=== PATIENT | male | born 1945 | race African-American/Black ===

== ENCOUNTER 2021-02-19 20:19 | Observation (INO) ==
[2021-02-19 21:48] LABS: Bilirubin,Urine Negative (Negative); Blood,Urine Negative (Negative); Clarity,Urine Clear (Clear); Color,Urine Colorless (Yellow); Glucose,Urine (UA) >=1000 mg/dL (Normal); Ketones,Urine Negative (Negative); Leukocyte Esterase,Urine Negative (Negative); Nitrite,Urine Negative (Negative); Protein,Urine Negative (Neg-Trace); RBC,Urine 0-3 per hpf (0-3); Specific Gravity,Urine 1.025 (1.010-1.025); Squamous Epithelial Cell,Urine Few per hpf (None-Few); Urobilinogen,Urine Normal (Normal); WBC,Urine 0-3 per hpf (0-3)
[2021-02-19 22:00] LABS: VBG HCO3 28 mEq/L (21-27); VBG PCO2 40 mmHg (41-51); VBG PH 7.45 pH Units (7.32-7.42); VBG PO2 154 mmHg (25-50)
[2021-02-19 22:02] LABS: Basophils % 0.3 %; Eosinophils # 0.3 K/mcL (0.0-0.6); Eosinophils % 2.6 %; Hematocrit 41.1 % (37.5-50.1); Hemoglobin 13.7 g/dL (12.9-16.9); Immature Granulocytes % 0.8 % (0-4); Lymphocytes # 2.7 K/mcL (0.6-4.6); Lymphocytes % 22.8 %; Mean Corpuscular HGB Conc 33.3 g/dL (31.6-35.5); Mean Corpuscular Hemoglobin 26.8 pg (28.0-33.3); Mean Corpuscular Volume 80.4 fL (83.0-100.0); Monocytes % 8.8 %; Neutrophils # 7.5 K/mcL (1.6-8.9); Platelet Count 250 K/mcL (140-400); Red Blood Count 5.11 M/mcL (4.19-5.50); Red Cell Distribution Width 16.3 % (11.5-14.5); Segmented Neutrophils % 64.7 %; White Blood Count 11.7 K/mcL (4.3-11.1)
[2021-02-19 22:15] LABS: Alanine Aminotransferase 18 Units/L (7-52); Albumin/Globulin Ratio 0.9 (1.1-2.2); Alkaline Phosphatase 144 Units/L (34-104); Aspartate Amino Transferase 17 Units/L (13-39); BUN/Creatinine Ratio 17 (6-26); Bilirubin,Direct 0.1 mg/dL (0.0-0.2); Bilirubin,Indirect 0.6 mg/dL (0.0-1.0); Bilirubin,Total 0.7 mg/dL (0.3-1.0); Blood Urea Nitrogen 26 mg/dL (8-23); Carbon Dioxide 26 mEq/L (23-29); Chloride 87 mEq/L (98-107); Globulin 4.3 g/dL (2.4-3.5); Glucose 671 mg/dL (70-105); Osmolality,Calculated 297 (280-300); Phosphorous 4.5 mg/dL (2.7-4.5); Sodium 125 mEq/L (136-145); Total Protein 8.3 g/dL (6.4-8.9); eGFR For African Americans 53 (> 60); eGFR For Non-African Americans 44 (> 60)
[2021-02-19 22:46] LABS: INR 1.2; Prothrombin Time 13.5 Seconds (9.4-12.1)
[2021-02-19] MEDS ORDERED: 0.9 % Sodium Chloride 1,000 ML IVC ONE (23:01)
[2021-02-19 23:48] LABS: Troponin I < 0.03 ng/mL (< 0.04)
[2021-02-20 00:23] LABS: Adenovirus Not Detected (Not Detect); Bordetella Pertussis Not Detected (Not Detect); Chlamydophila pneumoniae Not Detected (Not Detect); Coronavirus 229E Not Detected (Not Detect); Coronavirus HKU1 Not Detected (Not Detect); Coronavirus NL63 Not Detected (Not Detect); Coronavirus OC43 Not Detected (Not Detect); Human Metapneumovirus Not Detected (Not Detect); Human Rhinovirus/Enterovirus Not Detected (Not Detect); Influenza A Subtype 2009 H1 Not Detected (Not Detect); Influenza B Not Detected (Not Detect); Mycoplasma pneumoniae Not Detected (Not Detect); Parainfluenza Virus 1 Not Detected (Not Detect); Parainfluenza Virus 2 Not Detected (Not Detect); Parainfluenza Virus 3 Not Detected (Not Detect); Parainfluenza Virus 4 Not Detected (Not Detect); Respiratory Syncytial Virus Not Detected (Not Detect); SARS-CoV-2 Not Detected (Not Detect)
[2021-02-20] MEDS ORDERED: Insulin Human Regular 10 UNIT in 0.9 % Sodium Chloride 10 ML IV ONE ×2 (00:34→05:45)
[2021-02-20] MEDS: 0.9 % Sodium Chloride 1,000 ML IVC SCH ×3 (00:37→18:08)
[2021-02-20] MEDS ORDERED: Naloxone 0.4 MG/ML INJ IVP PRN (02:16)
[2021-02-20] MEDS ORDERED: Ondansetron 4 MG/2 ML VIAL IVP PRN (02:16)
[2021-02-20 02:49] LABS: BUN/Creatinine Ratio 18 (6-26); Blood Urea Nitrogen 24 mg/dL (8-23); Calcium 9.6 mg/dL (8.6-10.3); Carbon Dioxide 29 mEq/L (23-29); Chloride 94 mEq/L (98-107); Glucose 419 mg/dL (70-105); Osmolality,Calculated 296 (280-300); Potassium 3.3 mEq/L (3.5-5.1); Sodium 132 mEq/L (136-145); eGFR For African Americans > 60 (> 60); eGFR For Non-African Americans 52 (> 60)
[2021-02-20] MEDS ORDERED: D5% in Water 1,000 ML IVC PRN (04:33)
[2021-02-20] MEDS ORDERED: Dextrose Gel 15 GM/37.5 ML TUBE PO PRN ×2 (04:33)
[2021-02-20] MEDS ORDERED: *HR* Dextrose 50 % in Water (Vial) 50 ML VIAL IVP PRN (04:33)
[2021-02-20] MEDS: *HR* Heparin 5,000 UNIT/ML VIAL SQ SCH ×3 (05:25→20:18)
[2021-02-20] MEDS ORDERED: Potassium Chloride 40 MEQ, Lidocaine 1% 2 ML in 0.9 % Sodium Chloride 500 ML IVPB ONE (06:00)
[2021-02-20] MEDS ORDERED: Insulin LISPRO 300 UNITS/3 ML VIAL SUBQ SCH (06:00)
[2021-02-20 10:03] LABS: BUN/Creatinine Ratio 16 (6-26); Blood Urea Nitrogen 20 mg/dL (8-23); Calcium 8.9 mg/dL (8.6-10.3); Carbon Dioxide 30 mEq/L (23-29); Chloride 100 mEq/L (98-107); Glucose 288 mg/dL (70-105); Osmolality,Calculated 293 (280-300); Potassium 3.9 mEq/L (3.5-5.1); Sodium 135 mEq/L (136-145); eGFR For African Americans > 60 (> 60); eGFR For Non-African Americans 57 (> 60)
[2021-02-20] MEDS ORDERED: Insulin DETEMIR 100 UNIT/ML X5UNITS SUBQ ONE (11:00)
[2021-02-20] MEDS: Insulin LISPRO 300 UNITS/3 ML VIAL SUBQ SCH ×2 (12:03→18:09)
[2021-02-20] MEDS ORDERED: Insulin DETEMIR 100 UNIT/ML X5UNITS SUBQ SCH (21:00)
[2021-02-20 21:21] LABS: Estimated Average Glucose 272 mg/dl; Hemoglobin A1C 11.1 %
[2021-02-21 02:09] LABS: Immature Granulocytes % 0.3 % (0-4)
[2021-02-21 02:19] LABS: Basophils % 0.3 %; Eosinophils # 0.2 K/mcL (0.0-0.6); Eosinophils % 2.8 %; Hematocrit 41.9 % (37.5-50.1); Hemoglobin 14.2 g/dL (12.9-16.9); Immature Platelets 6.1 % (1.1-6.1); Lymphocytes # 2.9 K/mcL (0.6-4.6); Mean Corpuscular HGB Conc 33.9 g/dL (31.6-35.5); Mean Corpuscular Hemoglobin 27.3 pg (28.0-33.3); Mean Corpuscular Volume 80.6 fL (83.0-100.0); Monocytes # 0.7 K/mcL (0.0-1.3); Monocytes % 8.3 %; Neutrophils # 4.8 K/mcL (1.6-8.9); Platelet Count 210 K/mcL (140-400); Red Cell Distribution Width 16.4 % (11.5-14.5); Segmented Neutrophils % 55.3 %; White Blood Count 8.7 K/mcL (4.3-11.1)
[2021-02-21 02:35] LABS: Platelet Estimate Normal (Normal)
[2021-02-21] MEDS: Insulin LISPRO 300 UNITS/3 ML VIAL SUBQ SCH ×2 (03:33→06:07)
[2021-02-21] MEDS: 0.9 % Sodium Chloride 1,000 ML IVC SCH ×2 (03:34→07:45)
[2021-02-21] MEDS: *HR* Heparin 5,000 UNIT/ML VIAL SQ SCH ×2 (05:22→14:31)
[2021-02-21 08:14] VITALS: BP 164/97; PULSE 76; TEMP 97.5; O2SAT 94
[2021-02-21 10:35] LABS: BUN/Creatinine Ratio 13 (6-26); Blood Urea Nitrogen 13 mg/dL (8-23); Calcium 8.5 mg/dL (8.6-10.3); Carbon Dioxide 16 mEq/L (23-29); Chloride 100 mEq/L (98-107); Glucose 250 mg/dL (70-105); Osmolality,Calculated 283 (280-300); Sodium 132 mEq/L (136-145); eGFR For African Americans > 60 (> 60); eGFR For Non-African Americans > 60 (> 60)
[2021-02-21] MEDS ORDERED: Insulin LISPRO 300 UNITS/3 ML VIAL SUBQ SCH ×2 (11:30→21:00)
== END 2021-02-21 15:33 | disposition home or self-care (01) ==
LOC: EMEROOARM 20:19 → 2ANU 20:19 → SUATTDRO 02-20 00:56 → 2ANU 02-20 01:46
PROVIDERS: ADMIT Family Medicine; ATTEND Family Medicine

== ENCOUNTER 2022-04-30 13:18 | Inpatient (IN) ==
[2022-04-30 14:15] LABS: VBG HCO3 23 mEq/L (21-27); VBG PCO2 34 mmHg (41-51); VBG PH 7.44 pH Units (7.32-7.42); VBG PO2 118 mmHg (25-50)
[2022-04-30 14:16] LABS: INR 1.2; Prothrombin Time 13.7 Seconds (9.4-12.1)
[2022-04-30 14:18] LABS: Activated Partial Thrombo Time 26.3 Seconds (26.0-36.0); Basophils % 0.2 %; Eosinophils # 0.1 K/mcL (0.0-0.6); Immature Granulocytes % 0.6 % (0-4); Lymphocytes # 1.3 K/mcL (0.6-4.6); Lymphocytes % 14.5 %; Mean Corpuscular HGB Conc 28.7 g/dL (31.6-35.5); Mean Corpuscular Hemoglobin 19.1 pg (28.0-33.3); Mean Corpuscular Volume 66.5 fL (83.0-100.0); Mean Platelet Volume 9.5 fL (9.4-12.4); Monocytes % 10.9 %; Neutrophils # 6.3 K/mcL (1.6-8.9); Nucleated Red Blood Cells 0.9 /100 WBC (0); Platelet Count 358 K/mcL (140-400); Red Blood Count 2.15 M/mcL (4.19-5.50); Red Cell Distribution Width 19.5 % (11.5-14.5); Segmented Neutrophils % 72.8 %; White Blood Count 8.7 K/mcL (4.3-11.1)
[2022-04-30 14:25] LABS: Alanine Aminotransferase 9 Units/L (7-52); Albumin 3.8 g/dL (3.5-5.7); Albumin/Globulin Ratio 1.1 (1.1-2.2); Alkaline Phosphatase 80 Units/L (34-104); Aspartate Amino Transferase 13 Units/L (13-39); BUN/Creatinine Ratio 17 (6-26); Bilirubin,Direct 0.1 mg/dL (0.0-0.2); Bilirubin,Indirect 0.3 mg/dL (0.0-1.0); Bilirubin,Total 0.4 mg/dL (0.3-1.0); Blood Urea Nitrogen 23 mg/dL (8-23); Carbon Dioxide 23 mEq/L (23-29); Chloride 104 mEq/L (98-107); Globulin 3.4 g/dL (2.4-3.5); Glucose 107 mg/dL (70-105); Lipase 9 Units/L (11-82); Magnesium 2.1 mg/dL (1.6-2.6); Osmolality,Calculated 284 (280-300); Phosphorous 4.7 mg/dL (2.7-4.5); Potassium 4.8 mEq/L (3.5-5.1); Sodium 135 mEq/L (136-145); Total Protein 7.2 g/dL (6.4-8.9)
[2022-04-30 14:36] LABS: Hematocrit 14.3 % (37.5-50.1); Hemoglobin 4.1 g/dL (12.9-16.9)
[2022-04-30 14:37] LABS: Bilirubin,Urine Negative (Negative); Blood,Urine Large (Negative); Clarity,Urine Turbid (Clear); Glucose,Urine (UA) Normal (Normal); Ketones,Urine Negative (Negative); Leukocyte Esterase,Urine Negative (Negative); Nitrite,Urine Negative (Negative); PH,Urine 6.5 pH Units (5.0-8.0); Protein,Urine >=300 mg/dL (Neg-Trace); Specific Gravity,Urine 1.013 (1.010-1.025); Urobilinogen,Urine Normal (Normal)
[2022-04-30 14:38] LABS: Color,Urine Red (Yellow)
[2022-04-30 14:51] LABS: Anisocytosis 1+ (Not Present); Hypochromasia Present (Not Present); Microcytosis Present (Not Present); Platelet Estimate Normal (Normal); Troponin I < 0.03 ng/mL (< 0.04)
[2022-04-30] MEDS ORDERED: Iopamidol - 370 500 ML MLS IVP ONE (15:32)
[2022-04-30] MEDS ORDERED: 0.9 % Sodium Chloride 250 ML IVC SCH (15:45)
[2022-04-30] MEDS ORDERED: Ondansetron 4 MG/2 ML VIAL IVP PRN (15:46)
[2022-04-30] MEDS ORDERED: Naloxone 0.4 MG/ML INJ IVP PRN (15:46)
[2022-04-30] MEDS ORDERED: Dextrose Gel 15 GM/37.5 ML TUBE PO PRN ×2 (15:49)
[2022-04-30] MEDS ORDERED: D5% in Water 1,000 ML IVC PRN (15:49)
[2022-04-30] MEDS ORDERED: *HR* Dextrose 50 % in Water (Syg) 50 ML SYRINGE IVP PRN (15:49)
[2022-04-30] MEDS: Insulin LISPRO 300 UNITS/3 ML VIAL SUBQ SCH (17:54)
[2022-04-30] MEDS: traZODone 50 MG TABLET PO SCH (22:18)
[2022-04-30] MEDS: Finasteride 5 MG TABLET PO SCH (22:18)
[2022-05-01 04:06] LABS: Basophils % 0.3 %; Eosinophils # 0.1 K/mcL (0.0-0.6); Eosinophils % 0.7 %; Hematocrit 19.7 % (37.5-50.1); Hemoglobin 6.1 g/dL (12.9-16.9); Immature Granulocytes % 0.4 % (0-4); Lymphocytes # 1.2 K/mcL (0.6-4.6); Lymphocytes % 12.2 %; Mean Corpuscular Hemoglobin 22.1 pg (28.0-33.3); Mean Corpuscular Volume 71.4 fL (83.0-100.0); Mean Platelet Volume 9.7 fL (9.4-12.4); Monocytes # 0.9 K/mcL (0.0-1.3); Monocytes % 9.7 %; Nucleated Red Blood Cells 0.5 /100 WBC (0); Platelet Count 367 K/mcL (140-400); Red Blood Count 2.76 M/mcL (4.19-5.50); Segmented Neutrophils % 76.7 %; White Blood Count 9.5 K/mcL (4.3-11.1)
[2022-05-01 04:21] LABS: % Iron Saturation 4 % (20-55); Calcium 8.9 mg/dL (8.6-10.3); Iron 17 mcg/dL (65-175); Magnesium 2.3 mg/dL (1.6-2.6); Potassium 4.6 mEq/L (3.5-5.1); Transferrin 344 mg/dL (203-362)
[2022-05-01 04:28] LABS: Neutrophils # 7.3 K/mcL (1.6-8.9)
[2022-05-01 04:40] LABS: Anisocytosis 1+ (Not Present); Hypochromasia Present (Not Present); Platelet Estimate Normal (Normal); Poikilocytosis 1+ (Not Present)
[2022-05-01] MEDS: Insulin LISPRO 300 UNITS/3 ML VIAL SUBQ SCH ×3 (08:14→16:43)
[2022-05-01] MEDS ORDERED: ARIPiprazole 5 MG TABLET PO SCH (09:00)
[2022-05-01] MEDS ORDERED: FLUoxetine 20 MG CAPSULE PO SCH (09:00)
[2022-05-01] MEDS ORDERED: Iron Sucrose Complex 400 MG in 0.9 % Sodium Chloride 250 ML IVPB ONE (09:00)
[2022-05-01] MEDS ORDERED: FLUoxetine 20 MG CAPSULE PO ONE (11:45)
[2022-05-01] MEDS ORDERED: Iron Sucrose Complex 200 MG in 0.9 % Sodium Chloride 100 ML IVPB ONE (14:07)
[2022-05-01] MEDS: Gabapentin 300 MG CAPSULE PO SCH ×2 (14:34→20:26)
[2022-05-01] MEDS ORDERED: Gabapentin 300 MG CAPSULE PO SCH (15:00)
[2022-05-01 19:23] LABS: Hematocrit 25.7 % (37.5-50.1); Hemoglobin 8.1 g/dL (12.9-16.9)
[2022-05-01] MEDS: Finasteride 5 MG TABLET PO SCH (20:19)
[2022-05-01] MEDS: traZODone 50 MG TABLET PO SCH (20:20)
[2022-05-01] MEDS: Melatonin 3 MG TABLET PO SCH (20:20)
[2022-05-01] MEDS: rOPINIRole 0.25 MG TABLET PO SCH (20:26)
[2022-05-02 03:40] LABS: Basophils % 0.3 %; Eosinophils # 0.1 K/mcL (0.0-0.6); Eosinophils % 1.1 %; Hematocrit 26.9 % (37.5-50.1); Hemoglobin 8.5 g/dL (12.9-16.9); Immature Granulocytes % 1.2 % (0-4); Lymphocytes # 1.2 K/mcL (0.6-4.6); Lymphocytes % 10.2 %; Mean Corpuscular HGB Conc 31.6 g/dL (31.6-35.5); Mean Corpuscular Hemoglobin 24.1 pg (28.0-33.3); Mean Corpuscular Volume 76.4 fL (83.0-100.0); Mean Platelet Volume 9.6 fL (9.4-12.4); Monocytes # 1.5 K/mcL (0.0-1.3); Monocytes % 13.2 %; Nucleated Red Blood Cells 1.2 /100 WBC (0); Platelet Count 305 K/mcL (140-400); Red Blood Count 3.52 M/mcL (4.19-5.50); Red Cell Distribution Width 25.2 % (11.5-14.5); White Blood Count 11.3 K/mcL (4.3-11.1)
[2022-05-02 03:47] LABS: Neutrophils # 8.4 K/mcL (1.6-8.9)
[2022-05-02 04:04] LABS: Anisocytosis 1+ (Not Present); Hypochromasia Present (Not Present); Platelet Estimate Normal (Normal); Poikilocytosis 1+ (Not Present)
[2022-05-02 04:18] LABS: Calcium 9.1 mg/dL (8.6-10.3); Magnesium 2.3 mg/dL (1.6-2.6); Phosphorous 3.7 mg/dL (2.7-4.5); Potassium 4.6 mEq/L (3.5-5.1)
[2022-05-02] MEDS: Insulin LISPRO 300 UNITS/3 ML VIAL SUBQ SCH ×3 (07:34→16:14)
[2022-05-02] MEDS: Magnesium Oxide 400 MG TABLET PO SCH (09:38)
[2022-05-02] MEDS: FLUoxetine 20 MG CAPSULE PO SCH (09:39)
[2022-05-02] MEDS: Furosemide 20 MG TABLET PO SCH (09:39)
[2022-05-02] MEDS: Cyanocobalamin (B-12) 1,000 MCG TABLET PO SCH (09:39)
[2022-05-02] MEDS: Gabapentin 300 MG CAPSULE PO SCH ×3 (09:39→22:25)
[2022-05-02] MEDS: Cholecalciferol (D-3) 1,000 UNIT (25MCG) TABLET PO SCH (09:39)
[2022-05-02] MEDS: Valbenazine Tosylate [Ingrezza] 80 MG Capsule PO SCH (09:40)
[2022-05-02] MEDS: ARIPiprazole 10 MG TABLET PO SCH (10:00)
[2022-05-02 12:13] LABS: Hematocrit 24.7 % (37.5-50.1); Hemoglobin 7.9 g/dL (12.9-16.9)
[2022-05-02] MEDS: Finasteride 5 MG TABLET PO SCH (22:24)
[2022-05-02] MEDS: traZODone 50 MG TABLET PO SCH (22:25)
[2022-05-02] MEDS: rOPINIRole 0.25 MG TABLET PO SCH (22:25)
[2022-05-02] MEDS: Melatonin 3 MG TABLET PO SCH (22:25)
[2022-05-03] MEDS: Insulin LISPRO 300 UNITS/3 ML VIAL SUBQ SCH ×3 (07:01→16:52)
[2022-05-03] MEDS ORDERED: *HR* Propofol 200 MG/20 ML VIAL IVP ONE ×2 (08:10→08:39)
[2022-05-03] MEDS ORDERED: *HR* Succinylcholine 200 MG/10 ML VIAL IVP ONE (08:10)
[2022-05-03] MEDS ORDERED: Ondansetron 4 MG/2 ML VIAL ONE (08:10)
[2022-05-03] MEDS ORDERED: *HR* FentaNYL (PF) 100 MCG/2 ML VIAL ONE (08:10)
[2022-05-03] MEDS ORDERED: *HR* Rocuronium Bromide 50 MG/5 ML VIAL ONE (08:10)
[2022-05-03] MEDS ORDERED: ceFAZolin 2,000 MG in Water for inj. (sterile) 20 ML IVP ONE (08:30)
[2022-05-03] MEDS: ARIPiprazole 10 MG TABLET PO SCH (08:37)
[2022-05-03] MEDS: Cyanocobalamin (B-12) 1,000 MCG TABLET PO SCH (08:38)
[2022-05-03] MEDS: Gabapentin 300 MG CAPSULE PO SCH ×3 (08:38→19:57)
[2022-05-03] MEDS: Magnesium Oxide 400 MG TABLET PO SCH (08:38)
[2022-05-03] MEDS: Valbenazine Tosylate [Ingrezza] 80 MG Capsule PO SCH (08:38)
[2022-05-03] MEDS: Furosemide 20 MG TABLET PO SCH (08:38)
[2022-05-03] MEDS: FLUoxetine 20 MG CAPSULE PO SCH (08:38)
[2022-05-03] MEDS: Cholecalciferol (D-3) 1,000 UNIT (25MCG) TABLET PO SCH (08:39)
[2022-05-03] MEDS ORDERED: *HR* HYDROmorphone PF 0.5 MG/0.5 ML SYRINGE IVP PRN (08:42)
[2022-05-03] MEDS ORDERED: Lidocaine -MPF 2% 2 ML VIAL ONE (08:51)
[2022-05-03] MEDS ORDERED: Ondansetron 4 MG/2 ML VIAL IVP PRN (10:12)
[2022-05-03] MEDS ORDERED: Naloxone 0.4 MG/ML INJ IVP PRN (10:12)
[2022-05-03] MEDS ORDERED: *HR* Dextrose 50 % in Water (Syg) 50 ML SYRINGE IVP PRN (10:12)
[2022-05-03] MEDS ORDERED: Dextrose Gel 15 GM/37.5 ML TUBE PO PRN ×2 (10:12)
[2022-05-03] MEDS ORDERED: D5% in Water 1,000 ML IVC PRN (10:12)
[2022-05-03 14:20] LABS: Hematocrit 25.5 % (37.5-50.1); Lymphocytes # 0.6 K/mcL (0.6-4.6); Mean Corpuscular HGB Conc 31.4 g/dL (31.6-35.5); Mean Corpuscular Hemoglobin 24.4 pg (28.0-33.3); Mean Corpuscular Volume 77.7 fL (83.0-100.0); Mean Platelet Volume 9.4 fL (9.4-12.4); Monocytes # 0.2 K/mcL (0.0-1.3); Nucleated Red Blood Cells 1.2 /100 WBC (0); Platelet Count 328 K/mcL (140-400); Red Blood Count 3.28 M/mcL (4.19-5.50); Red Cell Distribution Width 26.1 % (11.5-14.5); White Blood Count 10.1 K/mcL (4.3-11.1)
[2022-05-03 14:56] LABS: Calcium 8.5 mg/dL (8.6-10.3); Magnesium 2.2 mg/dL (1.6-2.6); Phosphorous 4.6 mg/dL (2.7-4.5); Potassium 4.9 mEq/L (3.5-5.1)
[2022-05-03 15:23] LABS: Neutrophils # 9.3 K/mcL (1.6-8.9)
[2022-05-03 15:24] LABS: Anisocytosis 2+ (Not Present); Platelet Estimate Normal (Normal)
[2022-05-03] MEDS: Melatonin 3 MG TABLET PO SCH (19:56)
[2022-05-03] MEDS: Finasteride 5 MG TABLET PO SCH (19:57)
[2022-05-03] MEDS: rOPINIRole 0.25 MG TABLET PO SCH (19:57)
[2022-05-03] MEDS: traZODone 50 MG TABLET PO SCH (19:58)
[2022-05-04] MEDS ORDERED: Furosemide 20 MG TABLET PO SCH ×2 (09:00→09:43)
[2022-05-04] MEDS: Cholecalciferol (D-3) 1,000 UNIT (25MCG) TABLET PO SCH (09:11)
[2022-05-04] MEDS: Magnesium Oxide 400 MG TABLET PO SCH (09:19)
[2022-05-04] MEDS: FLUoxetine 20 MG CAPSULE PO SCH (09:19)
[2022-05-04] MEDS: Gabapentin 300 MG CAPSULE PO SCH ×3 (09:19→21:25)
[2022-05-04] MEDS: Insulin LISPRO 300 UNITS/3 ML VIAL SUBQ SCH ×3 (09:21→17:00)
[2022-05-04] MEDS: ARIPiprazole 5 MG TABLET PO SCH (09:21)
[2022-05-04] MEDS: Valbenazine Tosylate [Ingrezza] 80 MG Capsule PO SCH (09:22)
[2022-05-04] MEDS: Cyanocobalamin (B-12) 1,000 MCG TABLET PO SCH (09:22)
[2022-05-04 10:15] LABS: Calcium 8.8 mg/dL (8.6-10.3); Magnesium 2.3 mg/dL (1.6-2.6); Phosphorous 4.1 mg/dL (2.7-4.5); Potassium 4.6 mEq/L (3.5-5.1)
[2022-05-04 12:57] LABS: Basophils % 0.4 %; Nucleated Red Blood Cells 1.5 /100 WBC (0)
[2022-05-04 13:02] LABS: Basophils # 0.1 K/mcL (0.0-0.2); Eosinophils # 0.1 K/mcL (0.0-0.6); Eosinophils % 0.6 %; Hematocrit 24.5 % (37.5-50.1); Hemoglobin 7.9 g/dL (12.9-16.9); Immature Granulocytes % 1.8 % (0-4); Lymphocytes # 2.2 K/mcL (0.6-4.6); Lymphocytes % 17.7 %; Mean Corpuscular HGB Conc 32.2 g/dL (31.6-35.5); Mean Corpuscular Hemoglobin 24.5 pg (28.0-33.3); Mean Corpuscular Volume 76.1 fL (83.0-100.0); Mean Platelet Volume 10.1 fL (9.4-12.4); Monocytes # 1.4 K/mcL (0.0-1.3); Monocytes % 11.1 %; Neutrophils # 8.6 K/mcL (1.6-8.9); Platelet Count 293 K/mcL (140-400); Red Blood Count 3.22 M/mcL (4.19-5.50); Red Cell Distribution Width 26.6 % (11.5-14.5); Segmented Neutrophils % 68.4 %; White Blood Count 12.6 K/mcL (4.3-11.1)
[2022-05-04 14:16] LABS: Anisocytosis 2+ (Not Present); Hypochromasia Present (Not Present); Microcytosis Present (Not Present); Platelet Estimate Normal (Normal)
[2022-05-04] MEDS: Melatonin 3 MG TABLET PO SCH (21:24)
[2022-05-04] MEDS: Finasteride 5 MG TABLET PO SCH (21:24)
[2022-05-04] MEDS: rOPINIRole 0.25 MG TABLET PO SCH (21:24)
[2022-05-04] MEDS: traZODone 50 MG TABLET PO SCH (21:25)
[2022-05-05 03:36] LABS: Calcium 8.4 mg/dL (8.6-10.3); Potassium 4.2 mEq/L (3.5-5.1)
[2022-05-05] MEDS: Insulin LISPRO 300 UNITS/3 ML VIAL SUBQ SCH ×3 (07:24→16:42)
[2022-05-05] MEDS: ARIPiprazole 5 MG TABLET PO SCH (07:59)
[2022-05-05] MEDS: Magnesium Oxide 400 MG TABLET PO SCH (07:59)
[2022-05-05] MEDS: Cyanocobalamin (B-12) 1,000 MCG TABLET PO SCH (08:00)
[2022-05-05] MEDS: FLUoxetine 20 MG CAPSULE PO SCH (08:00)
[2022-05-05] MEDS: Cholecalciferol (D-3) 1,000 UNIT (25MCG) TABLET PO SCH (08:00)
[2022-05-05] MEDS: Gabapentin 300 MG CAPSULE PO SCH ×3 (08:00→20:05)
[2022-05-05] MEDS: Valbenazine Tosylate [Ingrezza] 80 MG Capsule PO SCH (08:01)
[2022-05-05 09:17] LABS: Hematocrit 25.7 % (37.5-50.1)
[2022-05-05] MEDS: traZODone 50 MG TABLET PO SCH (19:59)
[2022-05-05] MEDS: Finasteride 5 MG TABLET PO SCH (20:00)
[2022-05-05] MEDS: rOPINIRole 0.25 MG TABLET PO SCH (20:00)
[2022-05-05] MEDS: Melatonin 3 MG TABLET PO SCH (20:01)
[2022-05-06] MEDS: Insulin LISPRO 300 UNITS/3 ML VIAL SUBQ SCH ×3 (07:30→16:34)
[2022-05-06 08:01] LABS: Hematocrit 26.1 % (37.5-50.1); Hemoglobin 8.2 g/dL (12.9-16.9)
[2022-05-06 08:27] LABS: Calcium 8.7 mg/dL (8.6-10.3); Magnesium 1.9 mg/dL (1.6-2.6); Phosphorous 4.2 mg/dL (2.7-4.5); Potassium 4.4 mEq/L (3.5-5.1)
[2022-05-06] MEDS: Cyanocobalamin (B-12) 1,000 MCG TABLET PO SCH (08:50)
[2022-05-06] MEDS: Magnesium Oxide 400 MG TABLET PO SCH (08:50)
[2022-05-06] MEDS: FLUoxetine 20 MG CAPSULE PO SCH (08:50)
[2022-05-06] MEDS: ARIPiprazole 5 MG TABLET PO SCH (08:50)
[2022-05-06] MEDS: Cholecalciferol (D-3) 1,000 UNIT (25MCG) TABLET PO SCH (08:50)
[2022-05-06] MEDS: Gabapentin 300 MG CAPSULE PO SCH ×3 (08:51→20:14)
[2022-05-06] MEDS: Valbenazine Tosylate [Ingrezza] 80 MG Capsule PO SCH (08:51)
[2022-05-06 11:03] LABS: Calcium 8.6 mg/dL (8.6-10.3); Potassium 4.5 mEq/L (3.5-5.1)
[2022-05-06] MEDS: Melatonin 3 MG TABLET PO SCH (20:13)
[2022-05-06] MEDS: rOPINIRole 0.25 MG TABLET PO SCH (20:13)
[2022-05-06] MEDS: traZODone 50 MG TABLET PO SCH (20:14)
[2022-05-06] MEDS: Finasteride 5 MG TABLET PO SCH (20:14)
[2022-05-07] MEDS: Insulin LISPRO 300 UNITS/3 ML VIAL SUBQ SCH (08:05)
[2022-05-07] MEDS: Cyanocobalamin (B-12) 1,000 MCG TABLET PO SCH (08:43)
[2022-05-07] MEDS: FLUoxetine 20 MG CAPSULE PO SCH (08:43)
[2022-05-07] MEDS: ARIPiprazole 5 MG TABLET PO SCH (08:43)
[2022-05-07] MEDS: Cholecalciferol (D-3) 1,000 UNIT (25MCG) TABLET PO SCH (08:43)
[2022-05-07] MEDS: Gabapentin 300 MG CAPSULE PO SCH ×2 (08:43→13:23)
[2022-05-07] MEDS: Magnesium Oxide 400 MG TABLET PO SCH (08:43)
[2022-05-07] MEDS: Valbenazine Tosylate [Ingrezza] 80 MG Capsule PO SCH (08:44)
[2022-05-07 12:15] VITALS: BP 108/63; PULSE 64; TEMP 96.9; O2SAT 96
[2022-05-07 14:07] LABS: Basophils % 0.3 %; Eosinophils # 0.3 K/mcL (0.0-0.6); Eosinophils % 2.4 %; Hematocrit 27.9 % (37.5-50.1); Hemoglobin 8.7 g/dL (12.9-16.9); Immature Granulocytes % 1.2 % (0-4); Lymphocytes # 1.2 K/mcL (0.6-4.6); Lymphocytes % 11.8 %; Mean Corpuscular HGB Conc 31.2 g/dL (31.6-35.5); Mean Corpuscular Hemoglobin 24.8 pg (28.0-33.3); Mean Corpuscular Volume 79.5 fL (83.0-100.0); Mean Platelet Volume 9.5 fL (9.4-12.4); Monocytes # 1.1 K/mcL (0.0-1.3); Monocytes % 10.2 %; Neutrophils # 7.7 K/mcL (1.6-8.9); Nucleated Red Blood Cells 0.4 /100 WBC (0); Platelet Count 239 K/mcL (140-400); Red Blood Count 3.51 M/mcL (4.19-5.50); Segmented Neutrophils % 74.1 %; White Blood Count 10.4 K/mcL (4.3-11.1)
[2022-05-07 14:26] LABS: Calcium 8.6 mg/dL (8.6-10.3); Potassium 4.9 mEq/L (3.5-5.1)
== END 2022-05-07 14:50 | disposition home health service (06) | DRG 663 ==
LOC: EMEROOARM 13:18 → 2NENU 13:18 → SUATTDRO 15:31 → 2NENU 16:57 → SUATTDRO 05-02 13:15
PROVIDERS: ADMIT Hospitalist; ATTEND Internal Medicine